=== PATIENT | male | born 1950 ===

== ENCOUNTER 2019-08-16 06:10 | Day surgery (SDC) | payer OTHER ==
[~2019-08-16 06:10] MED LIST: DIOVAN160 M1 PO; METFORMIN HCL1000 M2 PO
[2019-08-16] MEDS ORDERED: COLACE100 MG PO (09:34)
[2019-08-16] MEDS ORDERED: PERCOCET 5-3251 EACH PO (09:34)
[2019-08-16] MEDS ORDERED: ULTRACET PO (14:34)
== END 2019-08-16 14:53 | disposition home or self-care (01) ==
LOC: CIR.AMB 06:10
DX: K64.8 Other hemorrhoids (principal)